=== PATIENT | male | born 1980 | race African-American/Black ===

== ENCOUNTER 2016-08-11 22:04 | Emergency (ER) | payer OTHER ==
[~2016-08-11] VITALS: Ht 162.6 cm; Wt 93.0 kg
[~2016-08-11 22:04] MED LIST: ACETAMINOPHEN-1 EAC1 PO; ANAPROX PO; BACTRIM DS TAB1 EACH PO; CIPROFLOXACIN500 M1 PO; DILANTIN100 MG PO; DOXYCYCLINE 10100 MG PO; FLEXERIL PO; IBUPROFEN 400400 M1 PO; IBUPROFEN 600600 M1; IBUPROFEN 800800 M1 PO; IBUPROFEN 800800 MG PO; KEFLEX500 MG PO; LORTAB 5 MG/5001 TA1 PO; NAPROSYN500 MG PO; NORCO 5-325 TA1 EACH PO; ONDANSETRON HCL4 M2 PO; PHENERGAN 25 MG25 M1 PO; PREDNISONE 20 M20 M1 PO; PROAIR HFA8.5 GM INH; PROMETHAZINE-C120 ML PO; PROVENTIL HFA6.7 G1 INH; TESSALON PERLE100 MG PO; THERAFLU COLD-1 EAC1 PO; VENTOLIN HFA INH8 GM IH; ZOFRAN 4 MG ORAL4 M1 DIS; ZOFRAN ODT4 MG PO; ZPAK PO
[2016-08-11] MEDS ORDERED: DELTASONE20 MG PO (22:41)
[2016-08-11] MEDS ORDERED: PROMETHAZINE-C120 ML PO (22:48)
[2016-08-11 22:50] VITALS: BP 134/83
== END 2016-08-11 22:51 | disposition home or self-care (01) ==
LOC: ER 22:04
DX: J20.8 Acute bronchitis due to other specified organisms (principal); G40.909 Epilepsy, unspecified, not intractable, without status epilepticus; J45.909 Unspecified asthma, uncomplicated; Z98.890 Other specified postprocedural states; Z88.1 Allergy status to other antibiotic agents; Z88.0 Allergy status to penicillin

== ENCOUNTER 2016-12-20 22:31 | Emergency (ER) | payer OTHER ==
[~2016-12-20] VITALS: Ht 165.1 cm; Wt 97.5 kg
[~2016-12-20 22:31] MED LIST changes: +DELTASONE20 MG PO
[2016-12-20] MEDS ORDERED: PEPCID20 MG PO (23:35)
[2016-12-20] MEDS ORDERED: PREDNISONE 20 M20 MG PO (23:35)
[2016-12-21 00:15] VITALS: BP 120/49
== END 2016-12-21 00:18 | disposition home or self-care (01) ==
LOC: ER 22:31
DX: L50.0 Allergic urticaria (principal); J45.909 Unspecified asthma, uncomplicated

== ENCOUNTER 2017-01-16 21:59 | Emergency (ER) | payer OTHER ==
[~2017-01-16] VITALS: Ht 165.1 cm; Wt 97.5 kg
[~2017-01-16 21:59] MED LIST changes: +PEPCID20 MG PO; +PREDNISONE 20 M20 MG PO
[2017-01-16] MEDS ORDERED: TESSALON PERLE100 MG PO (22:36)
[2017-01-16] MEDS ORDERED: IBUPROFEN 600600 M1 PO (22:36)
[2017-01-16 22:54] VITALS: BP 114/65
== END 2017-01-16 22:50 | disposition home or self-care (01) ==
LOC: ER 21:59
DX: J06.9 Acute upper respiratory infection, unspecified (principal); J45.909 Unspecified asthma, uncomplicated; G40.909 Epilepsy, unspecified, not intractable, without status epilepticus; Z88.0 Allergy status to penicillin; Z88.1 Allergy status to other antibiotic agents

== ENCOUNTER 2017-01-29 09:31 | Emergency (ER) | payer OTHER ==
[~2017-01-29] VITALS: Ht 162.6 cm; Wt 97.5 kg
[~2017-01-29 09:31] MED LIST changes: +IBUPROFEN 600600 M1 PO
[2017-01-29 10:09] LABS: URINE BILIRUBIN NEGATIVE (Negative); URINE BLOOD TRACE (Negative); URINE COLOR YELLOW; URINE GLUCOSE-RANDOM* NEGATIVE (Negative); URINE KETONES NEGATIVE (Negative); URINE NITRITE NEGATIVE (Negative); URINE PROTEIN (DIPSTICK) NEGATIVE (Negative); URINE SPECIFIC GRAVITY >= 1.030 (1.003-1.035); URINE UROBILINOGEN 0.2 E.U./dl (0.2-1.0)
[2017-01-29 10:11] LABS: BASOPHILS 0.6 % (0.0-2.0); HEMATOCRIT 43.7 % (42.0-52.0); HEMOGLOBIN 15.3 gm/dL (14.0-18.0); MCH 30.7 pg (26.0-34.0); MCHC 34.9 g/dL (28.0-37.0); MCV 87.8 fL (80.0-100.0); MONOCYTES 9.1 % (1.0-8.0); PLATELET COUNT 183 thou/uL (150-400); POLYS 44.3 % (36.0-66.0); RBC 4.98 mil/uL (4.50-6.00); RDW 13.1 % (10.5-14.5); WBC 4.6 thou/uL (4.0-11.0)
[2017-01-29 10:14] LABS: MANUAL DIFF NO
[2017-01-29 10:18] LABS: CREATININE 0.9 mg/dL (0.7-1.3); POTASSIUM 4.1 mmol/L (3.5-5.1)
[2017-01-29 10:24] LABS: ALBUMIN 4.2 g/dL (3.4-5.0); TOTAL BILIRUBIN 0.3 mg/dL (<0.1-1.0); TOTAL PROTEIN 7.6 g/dL (6.4-8.2)
[2017-01-29] MEDS ORDERED: LEVSIN0.125 MG PO (12:03)
[2017-01-29 12:12] VITALS: BP 119/78
== END 2017-01-29 12:13 | disposition home or self-care (01) ==
LOC: ER 09:31
PROVIDERS: Physician Assistant
DX: R10.11 Right upper quadrant pain (principal); J45.909 Unspecified asthma, uncomplicated; G40.909 Epilepsy, unspecified, not intractable, without status epilepticus; Z98.890 Other specified postprocedural states; Z88.0 Allergy status to penicillin; Z88.1 Allergy status to other antibiotic agents

== ENCOUNTER 2017-01-31 19:20 | Inpatient (IN) | payer OTHER ==
[~2017-01-31] VITALS: Ht 165.1 cm; Wt 94.8 kg
--- NOTE | ~2017-01-31 | EKG ---
[address] [place] [address] ELECTROCARDIOGRAM REPORT Name: CONI STEPHENSON Room #: 307-P ADM IN M.R.#: [id number] Admission: 01/31/17 Attend Phys: Dinesh Meier DO Discharge: Date of : 78 Report #: [id number] THIS REPORT FOR: //name// [facility] ED Test Date: 2017-01-31 Test Time: 20:46:49 Pat Name: CONI STEPHENSON Department: Room: [facility] Gender: M [employer]ker[employer] Office Manager: [id number] : 1980 Requested By: Rodrigue Morales Order Number: [id number] MD: Juan Antonio Quiroz Measurements Intervals Rodney Rate: 58 P: -6 VA: 153 QRS: 5 QRSD: 85 T: 16 QT: 413 QTc: 406 Interpretive Statements Sinus bradycardia Otherwise no significant abnormality Compared to ECG 12/17/2014 18:17:23 No significant changes Electronically Signed On 02-01-2017 9:52:06 CDT by Juan Antonio Quiroz [email or web address] <ELECTRONICALLY SIGNED> By: Juan Antonio Quiroz MD, [facility] 02/01/17951 45 45 Juan Antonio Quiroz MD, [facility] /EPI
--- NOTE | ~2017-01-31 | S ---
[facility] [place] [address] SURGICAL PATH RPT PROCEDURE Name: WANG VILLARREALNE Room #: 307-P [facility] IN M.R.#: [id number] Admission: 01/31/17 Date of : 78 Discharge: 02/02/17 Report #: [id number] Path Case #: [id number] PATHOLOGY REPORT COLLECTION DATE: 02/01/2017 RECEIVED DATE: 02/02/2017 SUBMITTING PHYS: Dr. Su Daily OTHER PHYS: Dr. Dinesh Obregon SPECIMEN(S) RECEIVED: A.Gastric body * * * * * * * * * * * * FINAL DIAGNOSIS: "Gastric body", biopsy: - Gastric mucosa with moderate chronic active gastritis, mild activity. - H. pylori organisms PRESENT in large numbers by immunohistochemical stain (block A1); control reacted appropriately. (CLW:mmhamilton; 02/05/2017) PATHOLOGIST: Ilene Chavarria M.D. REPORT ELECTRONICALLY SIGNED BY: Ilene Chavarria M.D. DATE/TIME: 02/05/2017 21:20 * * * * * * * * * * * * GROSS PATHOLOGY: The specimen is received in formalin, labeled "Wang Villarreal, gastric body rule out H pylori" and consists of 3 brown mucosal biopsies, 0.3-0.6 cm in greatest dimension. Totally submitted as A1. (ORTIZ; 02/02/2017) CLINICAL HISTORY: Abdominal pain. Gastric ulcer. INITIAL CPT CODE(S): A; 14207, 62082 Professional services performed by [facility] at [facility] [address], [place] [address] Technical services performed by [facility] at [address] [place] [id number]. [facility] [address] [place] [address] SURGICAL PATH RPT PROCEDURE Name: WANG VILLARREAL Room #: 307-P [facility] IN .R.#: [id number] Admission: 01/31/17 Date of : 78 Discharge: 02/02/17 Report #: [id number] Path Case #: [id number] [facility] [address] [address] PHONE: [phone] DIRECTOR: Mark Tee M.D. * * * END OF REPORT * * *
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
--- NOTE | ~2017-01-31 | P ---
[facility] [place] [address] PROCEDURE REPORT Name: CONI STEPHENSON Room #: 307-P ADM IN M.R.#: [id number] Admission: 01/31/17 Attend Phys: Dinesh Meier DO Discharge: Date of : 78 Report #: [id number] THIS REPORT FOR: //name// CC: Dinesh Dyer MD DATE OF SERVICE: 02/01/2017 PROCEDURE: EGD with biopsy. PATIENT OF: Dinesh Meier D.O. INDICATION FOR PROCEDURE: The patient's PIPIDA scan was normal, but it did reproduce the patient's pain when the CCK injection occurred. EGD is being performed to rule out peptic ulcer disease because he has been taking nonsteroidal anti-inflammatory medications. Informed consent for this procedure was obtained prior to the administration of any medication. The risks of the procedure, which include bleeding, perforation, infection, complications of sedation and the possibility I could miss something have been explained to the patient and he has indicated his consent by signing. DESCRIPTION OF PROCEDURE: Propofol was slowly titrated before and during this procedure for the patient comfort by the anesthesia service. The Novariantn upper videoscope was introduced through the upper esophageal sphincter and advanced under direct visualization to the descending duodenum, third portion. Findings were noted on withdrawal of the scope. The duodenum appeared normal in the second and third portion. In the duodenal bulb, however, there was a white based nonbleeding 1 cm ulceration. It looked benign. The remaining duodenal bulb mucosa appeared normal. Pylorus, normal mucosa. Antrum, mildly erythematous was noted of the antrum and biopsies were obtained from the antrum and body of the stomach for histopathology x 4. The body of the stomach likewise was erythematous. Cardia and fundus, mild erythema was noted. Retroflex view did not reveal any hiatal hernia. The scope was withdrawn to the esophagus. The Z-line was appropriately located at the top of the gastric folds and appeared normal. The esophageal mucosa appeared normal throughout its entirety. The scope was withdrawn. The patient went to the recovery area in stable condition. He tolerated the procedure well. IMPRESSION: 1. Duodenal bulb ulcer of size 1 cm white based, nonbleeding. 2. Diffuse mild gastritis, biopsies pending for histopathology, particularly to rule out Helicobacter pylori infection. [address] [address] PROCEDURE REPORT Name: CONI STEPHENSON HALINA Room #: 307-P [facility] IN M.R.#: [id number] Admission: 01/31/17 Attend Phys: Dinesh Meier DO Discharge: Date of : 78 Report #: [id number] RECOMMENDATIONS: To await the biopsy results. We will start him on a soft diet tonight. He can be discharged at any point from my standpoint. We are going to start him on proton pump inhibitors, Protonix specifically 40 mg p.o. b.i.d. We will follow up on those biopsies to make sure he does not have an H. pylori infection. Thank you very much once again for allowing me to participate in his care, Dr. Meier. <ELECTRONICALLY SIGNED> By: Su Daily DO 02/02/17 0841 [id number] 0400 Su Daily DO /nt
[~2017-01-31 19:20] MED LIST changes: +LEVSIN0.125 MG PO
[2017-01-31 19:22] VITALS: BP 151/104
[2017-01-31 19:59] LABS: URINE BILIRUBIN NEGATIVE (Negative); URINE BLOOD NEGATIVE (Negative); URINE COLOR YELLOW; URINE GLUCOSE-RANDOM* NEGATIVE (Negative); URINE KETONES NEGATIVE (Negative); URINE LEUKOCYTES-REFLEX NEGATIVE (Negative); URINE PROTEIN (DIPSTICK) NEGATIVE (Negative); URINE UROBILINOGEN 0.2 E.U./dl (0.2-1.0)
[2017-01-31 20:24] LABS: ABSOLUTE NEUTROPHILS 2.8 thou/uL (1.4-8.2); BASOPHILS 0.6 % (0.0-2.0); EOSINOPHILS 4.6 % (0.0-3.0); HEMATOCRIT 42.6 % (42.0-52.0); HEMOGLOBIN 14.8 gm/dL (14.0-18.0); LYMPHOCYTES 37.1 % (24.0-44.0); MCH 30.5 pg (26.0-34.0); MCHC 34.6 g/dL (28.0-37.0); MCV 88.1 fL (80.0-100.0); MONOCYTES 7.6 % (1.0-8.0); PLATELET COUNT 187 thou/uL (150-400); POLYS 50.1 % (36.0-66.0); RBC 4.84 mil/uL (4.50-6.00); RDW 13.1 % (10.5-14.5); WBC 5.6 thou/uL (4.0-11.0)
[2017-01-31 20:25] LABS: MANUAL DIFF NO
[2017-01-31 20:33] LABS: CALCIUM 9.1 mg/dL (8.5-10.1); CREATININE 0.9 mg/dL (0.7-1.3)
[2017-01-31 20:38] LABS: ALBUMIN 4.2 g/dL (3.4-5.0); TOTAL BILIRUBIN 0.2 mg/dL (<0.1-1.0); TOTAL PROTEIN 7.5 g/dL (6.4-8.2)
[2017-01-31 22:17] VITALS: BP 145/90
[2017-02-01] VITALS: BP 109/71
[2017-02-01 02:00] VITALS: BP 109/71
[2017-02-01 04:10] VITALS: BP 101/66
[2017-02-01 07:35] VITALS: BP 122/75
[2017-02-01 18:04] VITALS: BP 138/76
[2017-02-01 19:55] VITALS: BP 129/75
[2017-02-02 03:14] VITALS: BP 99/62
[2017-02-02 08:07] VITALS: BP 91/66
[2017-02-02 12:36] VITALS: BP 91/66
== END 2017-02-02 13:47 | disposition home or self-care (01) | DRG 384 ==
LOC: ER 19:20 → EROBS 22:35 → 3N 22:35 → ENTRNSPT 02-02 13:43 → EDTRNSPTSTS 02-02 13:44 → 3N 02-02 13:47
PROVIDERS: Physician Assistant
PROC: 0DB68ZX Excision of Stomach, Via Natural or Artificial Opening Endoscopic, Diagnostic (ICD-10-PCS; principal; 2017-02-01)
DX: K26.9 Duodenal ulcer, unspecified as acute or chronic, without hemorrhage or perforation (principal); K25.9 Gastric ulcer, unspecified as acute or chronic, without hemorrhage or perforation; K29.70 Gastritis, unspecified, without bleeding; G40.909 Epilepsy, unspecified, not intractable, without status epilepticus; J45.909 Unspecified asthma, uncomplicated; Z87.81 Personal history of (healed) traumatic fracture; Z88.1 Allergy status to other antibiotic agents; Z88.0 Allergy status to penicillin; Z91.041 Radiographic dye allergy status; Z83.3 Family history of diabetes mellitus
CPT/HCPCS: 10094; 62110; 62900; 70005

== ENCOUNTER 2017-06-27 22:17 | Emergency (ER) | payer OTHER ==
[~2017-06-27] VITALS: Ht 165.1 cm; Wt 56.7 kg
[2017-06-27 22:20] VITALS: BP 127/73
[2017-06-27] MEDS ORDERED: NORCO 5-325 TA1 EACH PO (22:45)
== END 2017-06-27 23:00 | disposition home or self-care (01) ==
LOC: ER 22:17
DX: S73.101A Unspecified sprain of right hip, initial encounter (principal); S86.911A Strain of unspecified muscle(s) and tendon(s) at lower leg level, right leg, initial encounter; G40.909 Epilepsy, unspecified, not intractable, without status epilepticus; J45.909 Unspecified asthma, uncomplicated; Z88.0 Allergy status to penicillin; Z88.1 Allergy status to other antibiotic agents; Z91.041 Radiographic dye allergy status; W00.0XXA Fall on same level due to ice and snow, initial encounter; Y93.89 Activity, other specified; Y92.89 Other specified places as the place of occurrence of the external cause; Y99.8 Other external cause status

== ENCOUNTER 2018-04-18 09:17 | Emergency (ER) | payer OTHER ==
[~2018-04-18] VITALS: Ht 167.6 cm; Wt 95.3 kg
[2018-04-18] MEDS ORDERED: MOBIC7.5 MG PO (10:43)
[2018-04-18] MEDS ORDERED: NORFLEX100 MG PO (10:43)
[2018-04-18 10:56] VITALS: BP 116/69
== END 2018-04-18 11:06 | disposition home or self-care (01) ==
LOC: ER 09:17
DX: S39.012A Strain of muscle, fascia and tendon of lower back, initial encounter (principal); M25.552 Pain in left hip; W00.1XXA Fall from stairs and steps due to ice and snow, initial encounter; Y93.89 Activity, other specified; Y92.89 Other specified places as the place of occurrence of the external cause; Y99.8 Other external cause status; J45.909 Unspecified asthma, uncomplicated; G40.909 Epilepsy, unspecified, not intractable, without status epilepticus

== ENCOUNTER → 2020-06-28 | Outpatient (CLI) | payer OTHER ==
[~2020-06-28] MED LIST changes: +MOBIC7.5 MG PO; +NORFLEX100 MG PO
== END ==
LOC: LAB 11:39
PROVIDERS: ATTEND Nurse Practitioner
DX: U07.1 COVID-19 (principal)

== ENCOUNTER 2020-07-04 07:13 | Inpatient (IN) | payer OTHER ==
[~2020-07-04] VITALS: Ht 167.6 cm; Wt 93.9 kg
[2020-07-04 07:21] VITALS: BP 120/76
[2020-07-04 08:31] LABS: ABSOLUTE NEUTROPHILS 5.6 thou/uL (1.4-8.2); BASOPHILS 0.2 % (0.0-2.0); EOSINOPHILS 0.1 % (0.0-3.0); HEMATOCRIT 44.5 % (42.0-52.0); LYMPHOCYTES 5.3 % (24.0-44.0); MCHC 33.7 g/dL (28.0-37.0); MCV 89.2 fL (80.0-100.0); MONOCYTES 3.9 % (1.0-8.0); PLATELET COUNT 151 thou/uL (150-400); POLYS 90.5 % (36.0-66.0); RBC 4.98 mil/uL (4.50-6.00); RDW 12.8 % (10.5-14.5); WBC 6.2 thou/uL (4.0-11.0)
[2020-07-04 09:16] LABS: ANION GAP 14 mmol/L (7-16); CO2 25 mmol/L (21-32); GLUCOSE 125 mg/dL (74-106)
[2020-07-04 09:17] LABS: ALBUMIN 3.7 g/dL (3.4-5.0); BUN 14 mg/dL (7-18); CALCIUM 8.3 mg/dL (8.5-10.1); CHLORIDE 100 mmol/L (98-107); POTASSIUM 3.3 mmol/L (3.5-5.1); SGOT 40 U/L (15-37); SGPT 69 U/L (16-63); SODIUM 139 mmol/L (136-145); TOTAL BILIRUBIN 0.3 mg/dL (0.2-1.0); TOTAL PROTEIN 7.6 g/dL (6.4-8.2); TROPONIN-I <0.06 ng/mL (<0.06)
[2020-07-04 09:17] LABS: BE(vivo) -0.6 mmol/L (-2 to +3); HCO3 22.4 mmol/L (22.0-26.0); PCO2 32.8 mmHg (35.0-45.0); PO2 62.5 mmHg (80.0-100.0); pH 7.453 (7.360-7.450); sO2 93.2 % (92.0-98.0)
[2020-07-04 10:16] VITALS: BP 112/77
[2020-07-04 10:45] VITALS: BP 112/77
[2020-07-04 10:59] VITALS: BP 126/81
[2020-07-04 15:47] VITALS: BP 99/66
--- NOTE | 2020-07-04 18:25 | NUR ---
PT ADMITTED FROM ER FOR COVID PNEUMONITIS AT 1100AM, PT IS A&OX3, PT IS ON O2 4L/MIN/NC, PT HAS SOB WITH ACTIVITIES, PT HAS STARTED MEDICATIONS TO TREAT COVID BY ID ORDER, PT CAN GET UP TO BATH ROOM BY HIMSELF, PT STILL HAS COUGHING, PT'S VS ARE STABLE BY THIS TIME.
[2020-07-04 23:32] VITALS: BP 118/74
--- NOTE | 2020-07-05 01:07 | NUR ---
PT ALERT AND ORIENTED X4. VSS AFEBRILE. C/O SHI MEDICATED WITH TYLENOL. PT RESTING QUIETLY PRESENTLY. NO S/S DISTRESS OR PAIN. ABX INFUSED ORDERED. RESPIRATIONG DIMINISHED AND UNLABORED PRESENTLY ON 6LNC. BED DOWN. CALL LIGHT IN REACH. BED ALARM IS ON.
[2020-07-05 04:22] VITALS: BP 108/67
[2020-07-05 04:59] LABS: ABSOLUTE NEUTROPHILS 2.4 thou/uL (1.4-8.2); HEMATOCRIT 42.2 % (42.0-52.0); HEMOGLOBIN 13.9 gm/dL (14.0-18.0); LYMPHOCYTES 21.9 % (24.0-44.0); MCH 29.7 pg (26.0-34.0); MCV 89.9 fL (80.0-100.0); PLATELET COUNT 154 thou/uL (150-400); POLYS 74.1 % (36.0-66.0); RBC 4.69 mil/uL (4.50-6.00); RDW 13.2 % (10.5-14.5); WBC 3.3 thou/uL (4.0-11.0)
[2020-07-05 05:08] LABS: PROTIME 11.1 Seconds (9.3-11.4)
[2020-07-05 05:17] LABS: CALCIUM 8.3 mg/dL (8.5-10.1); POTASSIUM 3.6 mmol/L (3.5-5.1); TOTAL BILIRUBIN 0.3 mg/dL (0.2-1.0)
[2020-07-05 07:19] VITALS: BP 126/55
[2020-07-05 07:46] VITALS: BP 119/76
--- NOTE | 2020-07-05 11:54 | NUR ---
Patient billfold and wedding ring given to patients , Ashanti Villarreal. A bag was given to the patient from .
--- NOTE | 2020-07-05 15:14 | NUR ---
INITIAL ASSESSMENT: SW reviewed chart and spoke with nursing and attending physician. Pt was admitted from home due to COVID. Pt placed in Enhanced Isolation. Pt had positive test on 06/28. Pt is currently afebrile and on 6L of O2. Pt is on IV abx and IV steroids. Pt has been started on Remdesivir and Ivermectin. SW placed call to pt's room. No answer. Per chart, pt is alert/orientated. Pt lives at home with his . Pt does not have health insurance. [facility] to follow up with pt for possible Medicaid application. Pt's PCP is listed as Dr. Kay. SW will follow up with pt at a later time and assist as needed with discharge planning.
[2020-07-05 15:32] VITALS: BP 101/64
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
--- NOTE | 2020-07-05 18:38 | NUR ---
RN ASSUMED PT'S CARE AT 0700AM, PT IS A&OX3, PT IS CONTINUING O2 6L/MIN/NC,AND IV ABX, PT HAS SOB WITH ACTIVITIES, PT CAN GET UP TO CHAIR AND BATHROOM BY HIMSELF. PT DENIES PAIN BY THIS TIME.
[2020-07-05 19:37] VITALS: BP 106/64
[2020-07-06 01:46] VITALS: BP 108/69
--- NOTE | 2020-07-06 02:09 | NUR ---
PT ALERT AND ORIENTED X4 . VSS EARLIER AT BEGINNING OF SHIFT. LATER AROUND 2 AM PT BECAME SOA. HE STATED HIS OXYGEN CAME OFF WHILE HE WAS ASLEEP. SAT 90% ON 6L. INCREASES TO 8LNC SAT STAYED 90%-92%. RT TX GIVEN. HI FLONC PLACED ON 10LNC. NOTIFIED FINANCE MGR, COUGH MEDICINE ORDERED ALSO PER PT REQUEST.
[2020-07-06 03:41] VITALS: BP 109/73
--- NOTE | 2020-07-06 06:30 | NUR ---
O2 SAT 97% THIS AM WITH 10LHFNC ON. NO C/O SOA PRESENTLY. PT RESTING QUIETLY.
[2020-07-06 06:46] LABS: ALBUMIN 3.2 g/dL (3.4-5.0); CALCIUM 8.8 mg/dL (8.5-10.1); POTASSIUM 3.9 mmol/L (3.5-5.1)
[2020-07-06 07:51] VITALS: BP 108/72
--- NOTE | 2020-07-06 10:55 | NUR ---
care assumed at 0700, pt alert and oriented x4, denies any pain, nausea and vomitting. pt on 10l of oxygen, sob with exertion, lungs coarse.pt on continuos pulse ox. uses urinal and up ad ghazala to bathroom when needed. pt is slowly progressing towards care. will continue to monitor
[2020-07-06 11:53] LABS: ALBUMIN 3.4 g/dL (3.4-5.0); DIRECT BILIRUBIN 0.1 mg/dL (<0.1-0.2); TOTAL BILIRUBIN 0.3 mg/dL (0.2-1.0); TOTAL PROTEIN 7.4 g/dL (6.4-8.2)
[2020-07-06 13:08] LABS: HIV ANTIBODY Non Reactive (Non Reactive)
--- NOTE | 2020-07-06 13:33 | NUR ---
KATHY reviewed chart and spoke with nursing and attending physician. Pt remains in Enhanced Isolation due to COVID. Pt is afebrile and requiring 10L of O2. Pt is on IV abx and IV steroids. Pt has started Remdesivir and Ivermectin. KATHY discussed case with [employer] business representative, who states that she will contact pt's family regarding his insurance. KATHY notified that pt does have active insurance. KATHY is following to assist as needed with discharge planning.
[2020-07-06 19:12] VITALS: BP 104/70
--- NOTE | 2020-07-06 21:31 | NUR ---
PT SITTING UP IN CHAIR WATCHING TV. O2 PER NC 8L, PT TAPED IT TO HIS FACE. PT VERBALIZING HIS ANXIETY AND CONCERNS RE COVID AND GETTING BETTER AND RETURNING TO HIS FAMILY. DISCUSSED HOW HE VIDEO CALLS HIS AND DAUGHTER. PT STATES HE IS AVOIDING WATCHING THE NEWS AND FOCUSING ON POSITIVE RECOVERY. PT STATED HIS IS GOING TO SLEEP PRONE TONIGHT. LUNGS WITH WHEEZES, BLE ANKLE EDEMA. ABD BS DECREASED DISTENDED. PT HAD PRN FOR COUGH AND SLEEP.
--- NOTE | 2020-07-07 04:04 | NUR ---
PT REMAINED PRONE FOR 4 TO 5 HOURS.
[2020-07-07 04:38] VITALS: BP 120/84
[2020-07-07 06:28] LABS: ALBUMIN 3.4 g/dL (3.4-5.0); CALCIUM 8.9 mg/dL (8.5-10.1); CREATININE 1.2 mg/dL (0.7-1.3); DIRECT BILIRUBIN 0.1 mg/dL (<0.1-0.2); POTASSIUM 3.6 mmol/L (3.5-5.1); TOTAL BILIRUBIN 0.3 mg/dL (0.2-1.0); TOTAL PROTEIN 7.5 g/dL (6.4-8.2)
[2020-07-07 08:11] VITALS: BP 114/74
--- NOTE | 2020-07-07 13:19 | NUR ---
CARE ASSUMED AT 0700, PT ALERT AND ORIENTED X4, DENIES ANY PAIN, NAUSEA AND VOMITTING. PT CONTINUE TO BE ON 9L OF OXYGEN VIA NC,SOB WITH EXERTION. PT HAS BEEN USING INCENTIVE SPIROMETER , AND PRONING AT NIGHT TIME. PT IS UP IN CHAIR NOW. DENIES ANY NEEDS. PT USES CALL LIGHT APPROPRIATELY. WILL CONTINUE TO MONITOR.
--- NOTE | 2020-07-07 14:18 | NUR ---
KATHY reviewed chart and spoke with nursing and attending physician. Pt remains in Enhanced Isolation due to COVID. Pt is afebrile and requiring 8-10L of O2. Pt is on IV abx and IV steoroids. Pt is completing course of Remdesivir. KATHY placed call to pt's room. No answer. KATHY spoke with pt's , Ashanti, via phone. Introduced role of SW. Pt is alert/orientated x 4. Pt is normally independent with ADLs. No use of DME. Pt has an inhaler. No use of breathing treatments or O2. Pt's PCP is Dr. Kay. Plan is for pt to discharge home when medically stable. KATHY is following to assist as needed with discharge planning.
[2020-07-07 15:52] VITALS: BP 109/72
[2020-07-07 19:27] VITALS: BP 104/75
[2020-07-08 04:00] VITALS: BP 114/71
[2020-07-08 05:14] LABS: ALBUMIN 3.4 g/dL (3.4-5.0); ANION GAP 10 mmol/L (7-16); BUN 27 mg/dL (7-18); CALCIUM 8.9 mg/dL (8.5-10.1); CHLORIDE 102 mmol/L (98-107); CO2 26 mmol/L (21-32); CREATININE 1.1 mg/dL (0.7-1.3); DIRECT BILIRUBIN < 0.1 mg/dL (<0.1-0.2); GLUCOSE 102 mg/dL (74-106); PHOSPHORUS 4.5 mg/dL (2.6-4.7); POTASSIUM 3.8 mmol/L (3.5-5.1); SGOT 120 U/L (15-37); SGPT 196 U/L (16-63); SODIUM 138 mmol/L (136-145); TOTAL BILIRUBIN 0.3 mg/dL (0.2-1.0); TOTAL PROTEIN 7.4 g/dL (6.4-8.2)
[2020-07-08 07:40] VITALS: BP 116/72
--- NOTE | 2020-07-08 07:48 | NUR ---
PROGRESS PT A/O X4 LUNGS WITH COARSE LUNGS SOUNDS THROUGHOUT. ON 10 LITERS O2 DIFFICULTY KEEPING SATS ABOVE 90% LAID PRONE FOR AWHILE THEN SAT UP FOR AWHILE. RT IN TO ADJUST PULSE OX AND MONITOR OXYGEN PT BREATHING SHALLOW. ENCOURAGED TO USE ISP DRINK LOTS OF FLUIDS AND CHANGE POSITIONS FREQUENTLY. NO TEMP THIS SHIFT. TOLERATING LIQUIDS WITH NO NAUSEA VOIDING QS DARK YELLOW URINE. ANTIBIOTICS GIVEN ORDERED CONTINUE TO MONITOR.
--- NOTE | 2020-07-08 12:52 | NUR ---
SW reviewed chart and spoke with nursing and attending physician. Pt reamins in Enhanced Isolation due to COVID. Pt is afebrile and on 10-15L of O2. Pt is on IV abx and IV steroids. Pt is completing course of Remdesivir. Plan is for pt to discharge home when medically stable. SW is following to assist as needed with discharge planning.
--- NOTE | 2020-07-08 15:52 | NUR ---
pt continuos to be on 8-10L of oxygen, sob with exertion. pt has been proning and using incentive. o2 sat running between 90-94%. pt denies any pain, nausea and vomitting. assessment and vitals stable. uses call light appropriately . will continue to monitor.
[2020-07-08 17:25] VITALS: BP 112/79
[2020-07-08 21:20] VITALS: BP 113/76
[2020-07-09 05:04] LABS: ALBUMIN 3.3 g/dL (3.4-5.0); CALCIUM 8.7 mg/dL (8.5-10.1); CREATININE 1.1 mg/dL (0.7-1.3); POTASSIUM 3.9 mmol/L (3.5-5.1); TOTAL BILIRUBIN 0.4 mg/dL (0.2-1.0)
[2020-07-09 05:46] VITALS: BP 111/72
[2020-07-09 07:36] VITALS: BP 111/68
--- NOTE | 2020-07-09 07:48 | NUR ---
progress pt feeling better this shift respiratory staus slowly improving on 7 liters high flow lungs expanding more coughing up thick clear sputum altenating between prone and sitting up i bed continues isp use iv antibiotics as ordered continue poc.
--- NOTE | 2020-07-09 13:07 | NUR ---
Assess for length of stay. Admit with COVID pneumonitis. Hx asthma. On regular diet, tolerating and has been eating 40-90% over past 3 days. Wts are stable. Low nutrition risk
--- NOTE | 2020-07-09 15:27 | NUR ---
KATHY reviewed chart and spoke with nursing and attending physician. Pt remains in Enhanced Isolation due to COVID. Pt is afebrile and requiring 7-10L of O2. Pt is on IV abx and IV steroids. Pt is completing course of Remdesivir. Possible weekend discharge anticipated. Pt will likely need home O2. KATHY placed call to pt's room. No answer. KATHY left voice message on pt's cell phone. KATHY spoke with pt's , Ashanti, via phone to provide update and discuss possible weekend discharge and need for home O2. Pt's is agreeable with plan. Options provided for home O2 companies. No preference voiced. KATHY also discussed HH services with pt's . She is unsure if pt will need HH, but is agreeable if recommended by physician. KATHY faxed referral to [facility] and notified liaison of possible weekend discharge. Rest/exercise oximetry will need to be ordered to determine pt's home O2 needs. Results and script will need to be faxed to [facility] when available. [facility] will deliver a portable tank to the hospital for pt's discharge. Contact info for [facility] placed in pt's discharge summary. KATHY is available to assist as needed with discharge planning. [facility]--
[2020-07-09 16:04] VITALS: BP 111/72
[2020-07-09 21:10] VITALS: BP 108/71
[2020-07-10 04:00] VITALS: BP 117/60
[2020-07-10 05:56] LABS: ALBUMIN 3.4 g/dL (3.4-5.0); CALCIUM 8.8 mg/dL (8.5-10.1); DIRECT BILIRUBIN 0.1 mg/dL (<0.1-0.2); PHOSPHORUS 3.3 mg/dL (2.5-4.9); POTASSIUM 3.5 mmol/L (3.5-5.1); TOTAL BILIRUBIN 0.3 mg/dL (0.2-1.0); TOTAL PROTEIN 7.1 g/dL (6.4-8.2)
[2020-07-10 07:38] VITALS: BP 110/74
--- NOTE | 2020-07-10 07:41 | NUR ---
PROGRESS PT HAS PRODUCTIVE COUGH, VSS, ANTIBIOTICS GIVEN ORDERED. UP WITH SBA O2 AT 6 LITERS UP TO 8 LITERS WITH ACTIVITY. TOOK A SHOWER WITH PORTABLE TANK AT 8 LITERS TOLERATED WELL. O2 SATS ON 6 LITERS 90 TO 92%, HAD PT SLEEP PRONE FOR MOST OF SHIFT AND O2 SATS UP TO 97%. PT REPORTS FEELING MUCH BETTER.
[2020-07-10 09:00] VITALS: BP 108/59
[2020-07-10 15:39] VITALS: BP 108/59
--- NOTE | 2020-07-10 19:16 | NUR ---
RN ASSUMED PT'S CARE AT 0700AM, PT IS A&OX3, PT IS ON O2 5L/MIN/NC TO KEEP O2SAT 92-95%, PT'S VS ARE STABLE, BUT PT STILL HAS SOB WITH EXERTION, PT GETS UP TO TO CHAIR OR BATH ROOM BY HIMSELF, PT DENIES PAIN AT THIS TIME.
[2020-07-10 20:47] VITALS: BP 108/61
[2020-07-11 04:05] VITALS: BP 110/72
--- NOTE | 2020-07-11 07:26 | NUR ---
PT MAKING PROGRESS TOWARDS GOALS. PT LUNG CLEAR BL UPPER, DIMINISHED BL LOWER, LEFT GREATER THAN RIGHT. PT REPORTING THAT HE WALKS WINDOW TO DOOR AND BACK "10" TIMES, SLEEPS IN THE PRONE POSITION AND IS USING THE I.S. FREQUENTLY. "I'M DOING EVERYTHING I CAN." O2 AT 5L PER NC THROUGHOUT THE NIGHT.
[2020-07-11 07:30] VITALS: BP 103/61
[2020-07-11 08:50] VITALS: BP 112/71
[2020-07-11 08:56] LABS: ALBUMIN 3.4 g/dL (3.4-5.0); CALCIUM 8.8 mg/dL (8.5-10.1); DIRECT BILIRUBIN 0.1 mg/dL (<0.1-0.2); PHOSPHORUS 2.9 mg/dL (2.5-4.9); POTASSIUM 3.4 mmol/L (3.5-5.1); TOTAL BILIRUBIN 0.3 mg/dL (0.2-1.0); TOTAL PROTEIN 6.8 g/dL (6.4-8.2)
[2020-07-11 15:35] VITALS: BP 112/71
--- NOTE | 2020-07-11 16:44 | NUR ---
RN ASSUMED PT'S CARE AT 0700AM, PT IS A&OX4, PT IS ON O2 5L/MIN/NC, PT'S VS ARE STABLE, PT GETS UP TO CHAIR AND BATH ROOM BY HIMSELF, PT IS CONTINUING IV REMDESIVIR FOR POSITIVE COVID, PT STILL HAS SOB WITH ACTIVITIES, PT DENIES PAIN AT THIS TIME.
[2020-07-12 05:44] LABS: ALBUMIN 3.2 g/dL (3.4-5.0); CALCIUM 8.5 mg/dL (8.5-10.1); POTASSIUM 4.1 mmol/L (3.5-5.1); TOTAL BILIRUBIN 0.3 mg/dL (0.2-1.0); TOTAL PROTEIN 6.6 g/dL (6.4-8.2)
[2020-07-12 05:49] LABS: ALBUMIN 3.2 g/dL (3.4-5.0); ANION GAP 7 mmol/L (7-16); BUN 17 mg/dL (7-18); CALCIUM 8.6 mg/dL (8.5-10.1); CHLORIDE 103 mmol/L (98-107); CO2 28 mmol/L (21-32); CREATININE 0.9 mg/dL (0.7-1.3); DIRECT BILIRUBIN < 0.1 mg/dL (<0.1-0.2); GLUCOSE 102 mg/dL (74-106); POTASSIUM 4.1 mmol/L (3.5-5.1); SGOT 38 U/L (15-37); SGPT 135 U/L (30-65); SODIUM 138 mmol/L (136-145); TOTAL BILIRUBIN 0.2 mg/dL (0.2-1.0); TOTAL PROTEIN 6.7 g/dL (6.4-8.2)
--- NOTE | 2020-07-12 07:23 | NUR ---
progress pt a/o x4 lungs diminished but good air exchange o2 sats in mid 90's, still reports some soa with activity but stated it is improving. vss tele intact reading sr. voiding qs, appetite good, taking fluids without difficulty. up ad ghazala remdisiver continues to dc home possible sunday if stable.
[2020-07-12 08:15] VITALS: BP 103/73
[2020-07-12 15:26] VITALS: BP 110/71
--- NOTE | 2020-07-12 16:37 | NUR ---
KATHY reviewed chart and spoke with nursing and attending physician. Pt remains in Enhanced Isolation due to COVID. Pt is afebrile and on 5L of O2. PT is on IV steroids. Discharge home is anticipated for tomorrow. Pt will need rest/exercise oximetry prior to discharge to determine home O2 needs. KATHY placed call to pt's room. No answer. Plan is for pt to discharge home. KATHY is following to assist as needed with discharge planning.
--- NOTE | 2020-07-12 19:31 | NUR ---
RN ASSUMED PT'S CARE AT 0700AM, PT IS A&OX3, PT IS ON O2 5L/MIN/NC, PT'S VS ARE STABLE, PT WILL FINISH REMDESIVIR TOMORROW, PT MAY DC TO HOME TOMORROW, PT CAN GET UP TO BATH ROOM AND CHAIR BY HIMSELF.
[2020-07-12 21:15] VITALS: BP 117/74
--- NOTE | 2020-07-13 05:19 | NUR ---
PT MAKING SLOW PROGRESS TOWARDS GOALS. ON O2 AT 5L PER NC OVERNIGHT. OT SAT AT TIMES 97% BUT WITH SPEAKING WILL AVERAGE 92-94%. PT DID REPORT THAT IF HE IS SPEAKING FOR LONG PERIODS HE WILL BEGIN TO FEEL SOA. SEE CHARTING.
[2020-07-13 05:34] VITALS: BP 106/64
[2020-07-13 06:29] LABS: ALBUMIN 3.4 g/dL (3.4-5.0); ANION GAP 11 mmol/L (7-16); BUN 24 mg/dL (7-18); CALCIUM 8.9 mg/dL (8.5-10.1); CHLORIDE 103 mmol/L (98-107); CO2 25 mmol/L (21-32); DIRECT BILIRUBIN < 0.1 mg/dL (<0.1-0.2); GLUCOSE 102 mg/dL (74-106); PHOSPHORUS 3.7 mg/dL (2.5-4.9); POTASSIUM 4.5 mmol/L (3.5-5.1); SGOT 43 U/L (15-37); SGPT 148 U/L (30-65); SODIUM 139 mmol/L (136-145); TOTAL BILIRUBIN 0.2 mg/dL (0.2-1.0); TOTAL PROTEIN 6.9 g/dL (6.4-8.2)
[2020-07-13 07:28] VITALS: BP 109/71
--- NOTE | 2020-07-13 10:14 | NUR ---
STARTED PT CARE AT SHIFT CHANGE. DOSE OF REMDESIVIR ADMINISTERED. EDUCATION PROVIDED TO PT AND (ON PHONE) ON OXYGEN USE AND COVID PRECAUTIONS ONCE DC'D. PT PLANS TO ISOLATE IN HIS BEDROOM ONCE HOME.
--- NOTE | 2020-07-13 13:24 | NUR ---
KATHY reviewed chart and spoke with nursing and attending physician. Pt is progressing towards goals for discharge home. Pt remains in Enhanced Isolation due to COVID. Pt is on 5L of O2. Pt is IV steroids and will complete course of Remdesivir today. Rest/exercise completed earlier today. Goal is for pt to be on less than 5L with activity prior to discharge. KATHY placed call to pt's room. No answer. KATHY left voice message for pt's to provide update. [facility] is following for home O2. KATHY updated [facility] liaison. KATHY is following to assist as needed with discharge planning.
[2020-07-13 15:31] VITALS: BP 115/74
[2020-07-13 20:09] VITALS: BP 108/69
--- NOTE | 2020-07-14 04:46 | NUR ---
PROGRESS PT A/O X4, SKIN C/D/I. VSS. LUNGS CLEAR IN UPPER LOBES BUT DIMINISHED IN BASES ON 5 LITERS O2 WITH NEED INCREASING TO 7 LITERS WITH ACTIVITY. DENIES SOA AT REST BUT GETS SOB WITH ACTIVITY. ENCOURAGED TO USE ISP. HAD HIM SLEEP PRONE CONTINUOUS PULSE OXIMETERY READING AT 92 TO 95%. TELEMETRY INTACT READING SA/SR WITH RATES FROM 60'S TO 80'S. DENIES PAIN VOIDING QS. ADEQUATE FLUID INTAKE. CONTINUE POC.
[2020-07-14 07:28] VITALS: BP 113/68
--- NOTE | 2020-07-14 08:47 | NUR ---
SPOKE TO DR RITTER RE: TB TEST ORDERED, WAS ADVISED TO CANCEL IT.
[2020-07-14 13:01] LABS: T-SPOT.TB Negative
--- NOTE | 2020-07-14 13:22 | NUR ---
KATHY reviewed chart and spoke with nursing and attending physician. Pt remains in Enhanced Isolation due to COVID. Pt is afebrile and requiring 4-7L of O2. Goal is for pt to be on 5L or less of O2 with ambulation. [facility] is following to set up home O2. KATHY updated [facility] [place] liaison. KATHY spoke with Alyssa in intake at [facility], who states they are able to accept pt when discharged. KATHY is following to assist as needed with discharge planning.
[2020-07-14 15:22] VITALS: BP 119/63
--- NOTE | 2020-07-15 08:27 | NUR ---
PROGRESS PT O2 NEEDS DECREASING NO COUGH NOTED LUNGS CLEAR BUT DIMINISHED IN LOWER LEFT. DENIES PAIN EXCEPT FOR PAIN AT EARS FROM O2 TUBING BLANCHABLE RED CUSHIONS APPLIED WITH EFFECT. PT UP AD BRANT O2 AT 4 LITERS MAINTAINING SATS AT 95 TO 97%. SLEPT PRONE TOLERATING DIET AND CLEAR LIQUIDS CONTINUE POC.
[2020-07-15 08:52] VITALS: BP 112/63
[2020-07-15 09:38] VITALS: BP 112/63
[2020-07-15] MEDS ORDERED: ELIQUIS5 MG PO (09:57)
[2020-07-15] MEDS ORDERED: PREDNISONE 20 M20 M1 PO (09:58)
[2020-07-15] MEDS ORDERED: VITAMIN C1000 MG PO (09:58)
[2020-07-15] MEDS ORDERED: ADULT TUSS100 MG/5 M PO (09:58)
[2020-07-15 11:16] VITALS: BP 112/63
--- NOTE | 2020-07-15 13:02 | NUR ---
DISCHARGE PAPERWORK, NEW MEDICATION INFORMATION EDUCATED ON AND GIVEN TO PT. PT MADE AWARE ABOUT DR. RENAE. EDUCATED ON HOW TO USE HOME OXYEGN AND NUMBER TO CALLED IF HELP NEEDED. IV D/C, TELE DISCONTINUED.DENIES ANY QUESTIONS. TAKEN DOWN VIA WHEELCHAIR.
--- NOTE | 2020-07-15 14:45 | NUR ---
DISCHARGE NOTE: KATHY reviewed chart and spoke with nursing and attending physician. Pt is medically stable for discharge home today. Rest/exercise oximetry completed. Pt does qualify for home O2. KATHY faxed rest/exercise oximetry results and script to [facility]. Notified [facility] liaison, who brought portable O2 tank. KATHY faxed finalized discharge orders/summary to Gena STOCKTON. Confirmed orders were received. Contact info for [facility] and placed in pt's discharge summary. Pt's family provided transportation home. No additional SW needs identified at this time, but is available to assist should needs arise.
== END 2020-07-15 13:20 | disposition home health service (06) | DRG 177 ==
LOC: ER 07:13 → 3W 10:32
PROVIDERS: Emergency Medicine; Specialist; ADMIT Hospitalist; ATTEND Hospitalist
PROC: XW033E5 Introduction of Remdesivir Anti-infective into Peripheral Vein, Percutaneous Approach, New Technology Group 5 (ICD-10-PCS; principal; 2020-07-04)
PROC: 5A0935A Assistance with Respiratory Ventilation, Less than 24 Consecutive Hours, High Flow/Velocity Cannula (ICD-10-PCS; 2020-07-06)
PROC: 5A0935A Assistance with Respiratory Ventilation, Less than 24 Consecutive Hours, High Flow/Velocity Cannula (ICD-10-PCS; 2020-07-08)
PROC: 5A0935A Assistance with Respiratory Ventilation, Less than 24 Consecutive Hours, High Flow/Velocity Cannula (ICD-10-PCS; 2020-07-09)
PROC: 5A0935A Assistance with Respiratory Ventilation, Less than 24 Consecutive Hours, High Flow/Velocity Cannula (ICD-10-PCS; 2020-07-10)
PROC: 5A0935A Assistance with Respiratory Ventilation, Less than 24 Consecutive Hours, High Flow/Velocity Cannula (ICD-10-PCS; 2020-07-11)
DX: U07.1 COVID-19 (principal); J12.82 Pneumonia due to coronavirus disease 2019; J80 Acute respiratory distress syndrome; J45.909 Unspecified asthma, uncomplicated; R79.89 Other specified abnormal findings of blood chemistry; G40.909 Epilepsy, unspecified, not intractable, without status epilepticus; Z79.899 Other long term (current) drug therapy; Z88.0 Allergy status to penicillin; Z88.8 Allergy status to other drugs, medicaments and biological substances; Z91.041 Radiographic dye allergy status
CPT/HCPCS: 10879

== ENCOUNTER → 2021-04-15 | Outpatient (CLI) | payer OTHER ==
[~2021-04-15] MED LIST changes: +ADULT TUSS100 MG/5 M PO; +ELIQUIS5 MG PO; +VITAMIN C1000 MG PO
== END ==
LOC: RAD 12:47
PROVIDERS: ATTEND Nurse Practitioner
DX: R09.89 Other specified symptoms and signs involving the circulatory and respiratory systems (principal); R06.00 Dyspnea, unspecified